=== PATIENT | female | born 1990 | race Two or more races ===

== ENCOUNTER 2017-03-04 13:13 | Emergency (ER) | payer OTHER ==
[2017-03-04 13:36] VITALS: BP 114/70; PULSE 74; TEMP 97.4; BMI 26.4
[2017-03-04] MEDS ORDERED: SODIUM CHLORIDE 1,000 ML IV STA (13:55)
[2017-03-04] MEDS ORDERED: ONDANSETRON 4 MG/2 ML VIAL IVPUSH ONE (13:55)
[2017-03-04 14:07] LABS: URINE APPEARANCE SLCLOUDY; URINE BILIRUBIN NEGATIVE (NEGATIVE); URINE BLOOD 3+ (NEGATIVE); URINE COLOR LTYELLOW; URINE GLUCOSE (UA) NEGATIVE (NEGATIVE); URINE KETONE NEGATIVE (NEGATIVE); URINE NITRITE NEGATIVE (NEGATIVE); URINE PROTEIN NEGATIVE (NEGATIVE); URINE UROBILINOGEN NEGATIVE mg/dL (0.2-1.0)
[2017-03-04 14:08] LABS: URINE LEUK ESTERASE 2+ (NEGATIVE)
[2017-03-04] MEDS ORDERED: ONDANSETRON 4 MG/2 ML VIAL ONE (14:15)
[2017-03-04 14:17] LABS: BASOPHIL 0.6 % (0-2.0); EOSINOPHIL 0.9 % (0-4.5); MCH 28.5 pg (25.7-33.7); MCHC 32.5 g/dl (32.0-36.0); MEAN CELL VOLUME 87.7 fl (80-96); MEAN PLT VOLUME 9.7 fl (7.5-11.1); NEUTROPHILS 66.2 % (42.8-82.8); PLATELET COUNT 316 K/MM3 (134-434); WHITE BLOOD COUNT 11.5 K/mm3 (4.0-10.0)
[2017-03-04 14:29] LABS: URINE BACTERIA RARE /hpf (NONE SEEN); URINE MUCUS RARE; URINE RBC <1 /hpf (0-3); URINE WBC 11 /hpf (3-5)
[2017-03-04] MEDS ORDERED: METOCLOPRAMIDE HCL INJECTION 10 MG/2 ML VIAL IVPB ONE (14:29)
[2017-03-04] MEDS ORDERED: METOCLOPRAMIDE HCL INJECTION 10 MG/2 ML VIAL ONE (14:34)
[2017-03-04 14:37] LABS: ALBUMIN 4.4 g/dl (3.4-5.0); ANION GAP 10 (8-16); CALCIUM 9.7 mg/dL (8.5-10.1); CO2 29 mmol/L (21-32); CREATININE 0.6 mg/dL (0.55-1.02); GLUCOSE,RANDOM 90 mg/dL (74-106); MAGNESIUM 2.1 mg/dL (1.8-2.4); SGOT/AST 14 U/L (15-37); SGPT/ALT 20 U/L (12-78)
[2017-03-04 14:38] LABS: ALK PHOS 70 U/L (45-117); BILIRUBIN,TOTAL 0.6 mg/dL (0.2-1.0); TOT PROT 8.7 g/dl (6.4-8.2)
--- NOTE | 2017-03-04 15:05 | PDOC ---
History of Present Illness - General Chief Complaint: Nausea/Vomiting Stated Complaint: NAUSEA/VOMITING Time Seen by Provider: 03/04/17 13:21 History Source: Patient Exam Limitations: No Limitations - History of Present Illness Travel History: No Initial Comments: 03/04/17 14:55 27-year-old female presents to the ED with complaints of nausea vomiting diarrhea since yesterday with no abdominal pain, fever, chills, dysuria or's. Patient denies medical history, GI disorders, recent travel, recent change in diet. Patient also denies recent sick contacts. Patient states is currently menstrating. Timing/Duration: reports: intermittent Past History - Travel Traveled outside of the country in the last 30 days: No Close contact w/someone who was outside of country & ill: No - Past Medical History Allergies/Adverse Reactions: Allergies Allergy/AdvReac Type Severity Reaction Status Date / Time No Known Allergies Allergy Verified 03/04/17 13:33 Home Medications: Ambulatory Orders NK [No Known Home Medication] 03/04/17 - Psycho/Social/Smoking Cessation Hx Suicidal Ideation: No Smoking History: Never smoked Hx Alcohol Use: No Drug/Substance Use Hx: No Patient Lives Alone: No Lives with/in: parents Review of Systems - Review of Systems Able to Perform ROS?: Yes Constitutional: No: Symptoms Reported HEENTM: No: Symptoms Reported Respiratory: No: Symptoms reported Cardiac (ROS): No: Symptoms Reported ABD/GI: Yes: Nausea, Vomiting. No: Diarrhea : No: Symptoms Reported Musculoskeletal: No: Symptoms Reported Integumentary: No: Symptoms Reported Neurological: No: Symptoms reported Hematologic/Lymphatic: No: Symptoms Reported *Physical Exam - Vital Signs Last Vital Signs Temp Pulse Resp BP Pulse Ox 97.4 F L 74 18 114/70 99 03/04/17 13:34 03/04/17 13:34 03/04/17 13:34 03/04/17 13:34 03/04/17 13:34 - Physical Exam General Appearance: Yes: Nourished, Appropriately Dressed. No: Apparent Distress HEENT: positive: Pharynx Normal. negative: Pale Conjunctivae Neck: positive: Normal Thyroid Respiratory/Chest: positive: Lungs Clear, Normal Breath Sounds. negative: Respiratory Distress, Accessory Muscle Use Cardiovascular: positive: Regular Rhythm, Regular Rate. negative: Murmur Gastrointestinal/Abdominal: positive: Soft. negative: Tenderness Musculoskeletal: negative: CVA Tenderness Extremity: positive: Normal Capillary Refill. negative: Pedal Edema Neurologic: positive: Motor Strength 5/5 (ambulatory) ED Treatment Course - LABORATORY CBC & Chemistry Diagram: 03/04/17 13:55 03/04/17 13:55 - ADDITIONAL ORDERS Additional order review: Laboratory Results 03/04/17 03/04/17 13:55 13:55 Sodium 140 Potassium 4.4 Chloride 101 Carbon Dioxide 29 Anion Gap 10 BUN 10 Creatinine 0.6 Creat Clearance w eGFR > 60 Random Glucose 90 Calcium 9.7 Magnesium 2.1 Total Bilirubin 0.6 AST 14 L ALT 20 Alkaline Phosphatase 70 Total Protein 8.7 H Albumin 4.4 Lipase 88 Urine Color Ltyellow Urine Appearance Slcloudy Urine pH 7.0 Urine Protein Negative Urine Glucose (UA) Negative Urine Ketones Negative Urine Blood 3+ H Urine Nitrite Negative Urine Bilirubin Negative Urine Urobilinogen Negative Ur Leukocyte Esterase 2+ H Urine RBC <1 Urine WBC 11 Ur Epithelial Cells Few Urine Bacteria Rare Urine Mucus Rare Urine HCG, Qual Negative 03/04/17 13:55 RBC 4.55 MCV 87.7 MCHC 32.5 RDW 13.0 MPV 9.7 Neutrophils % 66.2 Lymphocytes % 26.0 Monocytes % 6.3 Eosinophils % 0.9 Basophils % 0.6 - Medications Given in the ED: ED Medications Discontinued Medications Generic Name Dose Route Start Last Admin Trade Name Freq PRN Reason Stop Dose Admin Metoclopramide HCl 10 mg 03/04/17 14:29 03/04/17 14:36 Reglan Injection - IVPB 03/04/17 14:30 Not Given ONCE ONE Ondansetron HCl 4 mg 03/04/17 13:55 03/04/17 14:10 Zofran Injection IVPUSH 03/04/17 13:56 4 mg ONCE ONE Administration Medical Decision Making - Medical Decision Making 03/04/17 14:07 Patient with nausea vomiting diarrhea since yesterday. Patient has no other complaints presently. Patient had no acute findings or abdominal tenderness. Patient also with normal vital signs. Patient for basic labs, urinalysis urine , Zofran and IV fluids. Patient also ordered for lipase and urinalysis. 03/04/17 15:13 Laboratory Tests 03/04/17 03/04/17 03/04/17 13:55 13:55 13:55 WBC 11.5 H Hgb 13.0 Hct 39.9 Plt Count 316 Sodium 140 Potassium 4.4 Carbon Dioxide 29 Anion Gap 10 BUN 10 Creatinine 0.6 Random Glucose 90 Calcium 9.7 Magnesium 2.1 Total Bilirubin 0.6 AST 14 L ALT Pending Lipase Pending Urine Ketones Negative Urine Blood 3+ H Urine Nitrite Negative Urine Bilirubin Negative Ur Leukocyte Esterase 2+ H Urine WBC 11 Urine HCG, Qual Negative 03/04/17 15:21 macrobid for discharge and ucx ordered *DC/Admit/Observation/Transfer Diagnosis at time of Disposition: Urinary tract infection Qualifiers: Urinary tract infection type: acute cystitis Hematuria presence: without hematuria Qualified Code(s): N30.00 - Acute cystitis without hematuria - Discharge Dispostion Disposition: HOME Condition at time of disposition: Improved - Patient Instructions Printed Discharge Instructions: DI for Urinary Tract Infection (UTI) Additional Instructions: Please take Macrobid starting tonight. Please drink plenty of fluids. May take Zofran as needed for nausea.
== END 2017-03-04 15:54 | disposition home or self-care (01) ==
LOC: JER 13:13
PROC: 3E033GC Introduction of Other Therapeutic Substance into Peripheral Vein, Percutaneous Approach (ICD-10-PCS; principal; 2017-03-04)
DX: N30.00 Acute cystitis without hematuria (principal); B96.20 Unspecified Escherichia coli [E. coli] as the cause of diseases classified elsewhere
CPT/HCPCS: 36415; 80053; 81003; 81015; 83690; 83735; 84703; 85025; 87086; 87186; 96374; 99283-25

== ENCOUNTER 2024-02-16 04:03 | Day surgery (SDC) | payer OTHER ==
[2024-02-15 11:30] VITALS: BMI 30.6
[2024-02-16] MEDS ORDERED: MIDAZOLAM HCL 2 MG/2 ML SINGLE DOSE VIAL ONE (09:42)
[2024-02-16] MEDS ORDERED: LIDOCAINE 1%/EPI 1:100000 (20 ML MULTI DOSE VIAL) ONE (09:47)
[2024-02-16] MEDS ORDERED: PROPOFOL 40 ML ONE (10:15)
[2024-02-16] MEDS ORDERED: HYDROmorphone HCl 2 MG/ML VIAL ONE (10:15)
[2024-02-16] MEDS ORDERED: ROCURONIUM BROMIDE 50 MG/5 ML SYRINGE ONE (10:22)
[2024-02-16] MEDS: ceFAZolin SODIUM 1 GM VIAL IVPB ONE (10:25)
[2024-02-16] MEDS ORDERED: PROPOFOL 20 ML ONE (10:32)
[2024-02-16] MEDS: LIDOCAINE 1%/EPI 1:100000 (20 ML MULTI DOSE VIAL) IJ ONE ×2 (11:00)
[2024-02-16] MEDS ORDERED: SUGAMMADEX SODIUM 200 MG/2 ML VIAL ONE ×2 (11:13→11:27)
[2024-02-16] MEDS ORDERED: ONDANSETRON 4 MG/2 ML VIAL IVPUSH PRN (12:05)
[2024-02-16] MEDS: LACTATED RINGERS SOLUTION 1,000 ML IV SCH (13:01)
[2024-02-16 13:45] VITALS: RESP 16
[2024-02-16] MEDS ORDERED: oxyCODONE HCL 5 MG TABLET ONE (14:02)
[2024-02-16] MEDS: oxyCODONE HCL 5 MG TABLET PO PRN (14:04)
[2024-02-16 15:26] VITALS: BP 104/60; PULSE 71; TEMP 97.6
== END 2024-02-16 15:31 | disposition home or self-care (01) ==
LOC: JASU-SURG 04:03
PROVIDERS: ATTEND Otolaryngology
PROC: 09BL8ZZ Excision of Nasal Turbinate, Via Natural or Artificial Opening Endoscopic (ICD-10-PCS; 2024-02-16)
PROC: 0CTPXZZ Resection of Tonsils, External Approach (ICD-10-PCS; principal; 2024-02-16 10:00)
PROC: 0CTQ0ZZ Resection of Adenoids, Open Approach (ICD-10-PCS; 2024-02-16 10:00)
DX: G47.33 Obstructive sleep apnea (adult) (pediatric) (principal); J35.3 Hypertrophy of tonsils with hypertrophy of adenoids; J34.3 Hypertrophy of nasal turbinates
CPT/HCPCS: 81025; 94760